=== PATIENT | male | born 1985 | race Caucasian/White ===

== ENCOUNTER 2025-02-01 15:13 | Emergency (ER) | payer BC, SELFPAY ==
--- OUTSIDE RECORDS SUMMARY | 2025-02-01 15:16 | XMS_ITS | Clinical Summary ---
Author Organization [employer] [facility] Address [address] [place] [id number] Care Team Providers Care Tree Girdler Name Role Phone Volodymyr Joaquin MD Primary Care Provider [phone] Allergies Active AllergyReactionsCriticalityNoted DateCommentsAmoxicillin*Unknown - Childhood Rxn04/16/2017 Medications MedicationSigDispense QuantityRefillsLast FilledStart DateEnd DateStatus trimethoprim-polymyxin b (POLYTRIM) ophthalmic solution Indications:Conjunctivitis of both eyes, unspecified conjunctivitis typePlace 1 Drop into right eye four times daily. 10 mL 4Active Active Problems ProblemNoted DateDiagnosed DateModerate episode of recurrent major depressive bclasygu87/18/2021 Immunizations ImmunizationAdministration DatesNext DueCOVID-19 vaccine ([email or web address] 30mcg/0.3mL) MD STEWARTV102/25/2020,05/30/2020,04/29/2020Influensydney Intradermal PF 18- 64 yrs03/08/2013LAMONT Oneal3 (Age >=3 years)10/24/2020,11/19/2011InflSANDER manjarrezV4102/26/2019,01/18/2019,02/21/2017Tdap1 Social History Tobacco UseTypesPacks/DayYears UsedDateSmoking Tobacco: NeverSmokeless Tobacco: Never Tobacco Cessation:Counseling Given: Yes Alcohol UseStandard Drinks/WeekCommentsYes5 (1 standard drink = 0.6 oz pure alcohol)PHQ-2AnswerDate RecordedPHQ-2 TOTAL VAGAM352ocial Connections AnswerDate RecordedDo you often feel lonely or isolated from those around you?0 04/01/2023Financial Resource StrainAnswerDate RecordedDifficulty of Paying Living Isfghjlu194ifficulty of Paying Living ExpensesNot on file 04/01/2023Food InsecurityAnswerDate RecordedDo you worry your food will run out before you are able to buy more?Transportation NeedsAnswerDate RecordedDoes lack of transportation keep you from medical appointments?1 04/01/2023oes lack of transportation keep you from work, meetings or getting things that you need?Housing StabilityAnswerDate RecordedWhat is your housing situation today?UtilitiesAnswerDate RecordedDo you have trouble paying for utilities (for example, heat, electricity, water, phone)?1 04/01/2023Sex and Gender InformationValueDate RecordedSex Assigned at BirthNot on fileLegal CglHepq6702/24/2012 5:43 AM CSTGender IdentityNot on fileSexual OrientationNot on file Last Filed Vital Signs Vital SignReadingTime TakenCommentsBlood Xzblhjkz720/75004/01/2023 7:47 AM MARKETING ANALYTICS SPECIALIST Tlwlr775604/01/2023 7:47 AM NQVZlrnxfiuffv70.4 ??C (97.6 ??F)04/01/2023 7:47 AM CSTRespiratory Qyuc6435 9:36 AM CSTOxygen Ngkqemcrzi86%04/01/2023 7:47 AM CSTInhaled Oxygen Concentration--Ajjvtm88.8 kg (215 lb 11.2 oz)04/01/2023 7:47 AM XASYtojqt191.5 cm (5' 9.88)03/24/2020 10:01 AM CSTBody Mass Index31.05 03/24/2020 10:01 AM MARKETING ANALYTICS SPECIALIST Plan of Treatment Health MaintenanceDue DateLast DoneCommentsHIV for age 15-65007/30/1999Hepatitis C screening for age 18-7907/29/2002Hepatitis B series for 19+ (1 of 3 - 19+ 3- dose series)07/30/2003HPV series for age 9-45 (1 - 3-dose SCDM series)07/30/2011 Lipids for age 35-44007/30/2019BMI (ht and wt on same day) for age 18+03/24/2021 03/24/2020Tetanus gnfixve60Depression screening for age 12+ /, 04/27/2020, 04/21/2020, Additional history existsCOVID-19 vaccine series (2024- season)501/05/2022, 12/25/2020, 05/30/2020, Additional history existsInfluenza Vaccine (#1)509/, 12/28/2019, 01/18/2019, Additional history existsPneumococcal series for age 6-49Aged OutNo longer eligible based on patient's age to complete this topic Insurance Care Teams Team MemberRelationshipSpecialtyStart DateEnd Date Volodymyr Joaquin MD [address] [place] [address] PCP - GeneralFamily Practice08/04/21
[2025-02-01 15:29] VITALS: BP 124/75; PULSE 78; RESP 20; TEMP 36.9; O2SAT 99; BMI 27.3
--- NOTE | 2025-02-01 15:33 | CRLHL7_ITS ---
For Patients: As a result of the Cures Act, medical imaging exams and procedure reports are released immediately into your electronic medical record. You may view this report before your referring provider. If you have questions, please contact your health care provider. Indication: Right ankle pain. Technique: Three views of the right ankle Comparison: None. Findings: No acute fracture. The talar dome is intact. Dictated by Jerry Gee MD @ 02/01/2025 4:13:45 PM (Electronically Signed)
--- NOTE | 2025-02-01 16:31 | ED.GENADULT ---
HPI - General Adult General Chief complaint: Extremity Pain/Injury, Lower Stated complaint: R ankle injury rolled and it popped Time Seen by Provider: 02/01/25 16:31 History of Present Illness HPI narrative: At approx 1430 today, pt stepped off a curb and rolled right ankle, states he felt a pop. Pain currently at rest 04/19. 39-year-old man presenting to the emergency department with complaint of right ankle pain. Stepped off a curb full that his foot and ankle. [place] a pop. Pain in the lateral aspect of the ankle. No prior notable injuries. No other injury sustained today. Maybe able to bear little bit of weight. The time I am seeing Mr. Palomares in a busy ER he has already been imaged with three-view x-rays of the right ankle. Related Data Home Medications ?Medication ?Instructions ?Recorded ?Confirmed No Known Home Medications 01/24/23 01/24/23 Allergies Allergy/AdvReac Type Severity Reaction Status Date / Time Penicillins Allergy Verified 01/24/23 10:37 Review of Systems Status of ROS: Reports: 6 or more systems reviewed and unremarkable except as noted in History and below Exam Narrative: Exam Narrative: Pleasant. NAD. Has ice pack on anterior ankle with leg up in exam bed. Examination of the right ankle without laxity to varus or valgus stressors or AP drawer. Mild swelling about the lateral malleolus. Tenderness anterior laterally to the lateral malleolus. No navicular pain or swelling. No base of 5th metatarsal pain or swelling. No medial malleolar pain. No plantar bruising. Const: Vital Signs, click to edit/add: Vital Signs - 24 hr 02/01/25 15:29 Temperature 98.5 F Pulse Rate [Pulse Oximeter] 78 Respiratory Rate 20 Blood Pressure [Ri ght Upper Arm] 124/75 Pulse Oximetry 99 Oxygen Delivery Me thod Room Air Documenting provider has reviewed patient's vital signs: yes Course Vital Signs Vital signs: Initial Vital Signs Temperature 98.5 F 02/01/25 15:29 Temperature Source Temporal Artery Scan 02/01/25 15:29 Pulse Rate 78 02/01/25 15:29 Respiratory Rate 20 02/01/25 15:29 Blood Pressure 124/75 02/01/25 15:29 Blood Pressure Mean 91 02/01/25 15:29 Blood Pressure Position Sitting 02/01/25 15:29 Pulse Oximetry 99 02/01/25 15:29 Oxygen Delivery Method Room Air 02/01/25 15:29 Vital Signs Temperature 98.5 F 02/01/25 15:29 Pulse Rate 78 02/01/25 15:29 Respiratory Rate 20 02/01/25 15:29 Blood Pressure 124/75 02/01/25 15:29 Pulse Oximetry 99 02/01/25 15:29 Oxygen Delivery Method Room Air 02/01/25 15:29 Temperature 98.5 F 02/01/25 15:29 Pulse Rate 78 02/01/25 15:29 Respiratory Rate 20 02/01/25 15:29 Blood Pressure 124/75 02/01/25 15:29 Pulse Oximetry 99 02/01/25 15:29 Oxygen Delivery Method Room Air 02/01/25 15:29 Medications Administered Medications: Discontinued Medications Generic Name Dose Route Start Last Admin Trade Name Anthonyq PRN Reason Stop Dose Admin Ibuprofen 800 mg 02/01/25 17:03 02/01/25 17:15 Ibuprofen 400 Mg Tablet PO 02/01/25 17:04 800 mg ONCE ONE Administration Medical Decision Making MDM Narrative Medical decision making narrative: On initial evaluation I would suspect 1st or second-degree ankle sprain. This was an inversion injury. Was asking for pain medication and I have ordered some ibuprofen. Three-view of the ankle independently reviewed by me shows maintained mortise. Prominent posterior talar ossification. I do not see any acute bony abnormality. Returned to discuss care of what appears to be ankle sprain. Do not have Aircast available. I do not think will need/necessitate a walking boot at this point. Dispensed crutches. See patient discharge plan for further discussion See dispensed handout on ankle sprain rehabilitation. I would ice your ankle as discussed 2 - 3 times daily over the next few days. Ibuprofen, acetaminophen, elevation for comfort as well. Use these crutches to rest your ankle particularly over the next couple of days. Activity mostly limited initially to doing mobility circles. I would expect you to feel a little bit better every couple of days. Follow-up if simply not improved in 7-10 days. Medical Records Medical records reviewed: Yes I reviewed the patient's medical records Discharge Plan Discharge Clinical Impression: Ankle sprain Patient Disposition: Home w/ Parent or Adult Condition: Stable Instructions: Ankle Sprain (ED) Additional Instructions: See dispensed handout on ankle sprain rehabilitation. I would ice your ankle as discussed 2 - 3 times daily over the next few days. Ibuprofen, acetaminophen, elevation for comfort as well. Use these crutches to rest your ankle particularly over the next couple of days. Activity mostly limited initially to doing mobility circles. I would expect you to feel a little bit better every couple of days. Follow-up if simply not improved in 7-10 days. Prescriptions: No Action No Known Home Medications Follow Up/Referrals: Volodymyr Joaquin MD [Primary Care Provider, Family Practice] Stand Alone Forms: [employer] Info Instructions
[2025-02-01] MEDS: IBUPROFEN 400 MG TABLET 800 MG PO (17:15)
== END 2025-02-01 17:56 | disposition home or self-care (01) ==
LOC: ED 17:16
PROVIDERS: Emergency Provider Family Medicine; PCP Surgery
DX: S93.401A Sprain of unspecified ligament of right ankle, initial encounter (principal); X50.1XXA Overexertion from prolonged static or awkward postures, initial encounter
CPT/HCPCS: 73610; 99283; 99284; A9270